=== PATIENT | female | born 1965 | race Caucasian/White ===

== ENCOUNTER 2024-07-18 11:44 | Outpatient (CLI) | payer BC, OTHER ==
[2024-07-18 13:26] LABS: #Basophils 0.04 10x3/uL (0.0-0.2); #Eosinophils 0.12 10x3/uL (0.0-0.5); #Monocytes 0.75 10x3/uL (0.0-1.1); #Neutrophils 3.42 10x3/uL (1.5-8.4); %Basophils 0.7 % (0.0-2.0); %Eosinophils 2.1 % (0.0-6.0); %Lymphocytes 25.6 % (18.0-47.0); %Monocytes 12.8 % (0.0-10.0); %Neutrophils 58.5 % (40.0-75.0); Hemoglobin 11.4 g/dL (12.0-15.5); Mean Corpuscular HGB CONC 33.5 g/dL (32.0-36.0); Mean Corpuscular Volume 89.5 fL (81.6-98.3); Mean Platelet Volume 9.9 fL (7.4-10.4); Platelet Count 264 10x3/uL (150-450); RBC Distribution Width 12.7 % (11.5-14.5); White Blood Cell (WBC) Count 5.9 10x3/uL (3.5-10.5)
[2024-07-18 13:34] LABS: Anion Gap 14 mmol/L (10-20); BUN (Urea Nitrogen) 13 mg/dL (9.8-20.1); Calc. Creatinine Clearance 0 mL/min (70-130); Calcium 9.5 mg/dL (7.8-10.44); Carbon Dioxide 24 mmol/L (22-29); Chloride 105 mmol/L (98-107); Estimated GFR 101; Glucose 95 mg/dL (70-105); Potassium 4.1 mmol/L (3.5-5.1); Sodium 139 mmol/L (136-145)
== END 2024-07-18 11:45 | disposition home or self-care (01) ==
LOC: CSHLAB 11:44
PROVIDERS: ATTEND Specialist
DX: Z01.818 Encounter for other preprocedural examination (principal); C50.911 Malignant neoplasm of unspecified site of right female breast
CPT/HCPCS: 71046; 80048; 85025; 93005; 93010

== ENCOUNTER 2024-07-20 09:43 | Day surgery (SDC) | payer BC ==
[2024-07-18 12:22] VITALS: BMI 21.9
[2024-07-20] MEDS ORDERED: Acetaminophen 500 MG TAB ONE (10:37)
[2024-07-20] MEDS ORDERED: Ketorolac Tromethamine 30 MG (1 mL) VIAL ONE (10:37)
[2024-07-20] MEDS ORDERED: fentaNYL 50 mcg/mL 1 mL Vial ONE ×2 (11:35→15:07)
[2024-07-20] MEDS ORDERED: Rocuronium Bromide 10 MG/ML (10ML VIAL) ONE (11:35)
[2024-07-20] MEDS ORDERED: Lidocaine 1% PF 5 ML VIAL ONE (11:35)
[2024-07-20] MEDS ORDERED: PROPOFOL 0 ML ONE (11:35)
[2024-07-20] MEDS ORDERED: Scopolamine 1 mg/72 hour Patch ONE (12:08)
[2024-07-20] MEDS ORDERED: Isosulfan Blue 50 MG/5 ML VIAL ONE (12:49)
[2024-07-20] MEDS ORDERED: Lidocaine 2% MPF 10 ML AMP (For Epidural Use) ONE (12:49)
[2024-07-20] MEDS ORDERED: Bupivacaine/Epinephrine 0.25% 30 ML VIAL ONE (12:50)
[2024-07-20] MEDS ORDERED: CEFAZOLIN 2 GM VIAL ONE (12:50)
[2024-07-20] MEDS ORDERED: PROPOFOL 20 ML ONE (13:11)
[2024-07-20] MEDS ORDERED: PHENYLEPHRINE-NS 100 MCG/ML 10 ML SYRINGE ONE (13:20)
[2024-07-20] MEDS ORDERED: Dexamethasone 20 MG/5 ML VIAL ONE (13:20)
[2024-07-20] MEDS ORDERED: Ondansetron PF 4 MG/2 ML Vial ONE (13:20)
[2024-07-20] MEDS ORDERED: HYDROcodone/Acetaminophen 5/325 mg Tablet ONE (16:01)
== END 2024-07-20 16:35 | disposition home or self-care (01) ==
LOC: CSHSDC 09:43
PROVIDERS: ATTEND Specialist
PROC: 07B50ZZ Excision of Right Axillary Lymphatic, Open Approach (ICD-10-PCS; principal; 2024-07-20)
PROC: 0HBT0ZZ Excision of Right Breast, Open Approach (ICD-10-PCS; principal; 2024-07-20)
DX: C50.811 Malignant neoplasm of overlapping sites of right female breast (principal); N60.31 Fibrosclerosis of right breast; R59.0 Localized enlarged lymph nodes; I73.9 Peripheral vascular disease, unspecified; K21.9 Gastro-esophageal reflux disease without esophagitis; F17.200 Nicotine dependence, unspecified, uncomplicated; Z95.5 Presence of coronary angioplasty implant and graft; Z98.890 Other specified postprocedural states; Z79.02 Long term (current) use of antithrombotics/antiplatelets; Z79.82 Long term (current) use of aspirin; Z79.899 Other long term (current) drug therapy
CPT/HCPCS: 76098; 88307; C1713; J1100; J1885; J2405; J2704; J3010; Q9968